=== PATIENT | female | born 1955 | race Caucasian/White ===

== ENCOUNTER → 2019-06-19 12:07 | Outpatient (CLI) | payer MEDICARE, OTHER, SELFPAY ==
--- NOTE | ~2019-06-19 | DEXA_ITS ---
Bone Density Report Name: Qi Otto Age: 63 Sex: Female Ethnicity: White Date of : 1955 Indication: postmenopausal; screening for osteoporosis; height loss; hysterectomy; Referring Provider: José Miguel, Curry Dudley Study: Bone densitometry was performed. Exam Date: June 19, 2019 Accession number: [id number] Bone Density: Region BMD T-score Z-score Classification AP Spine (L1-L4) 1.006 -0.4 1.4 Normal Femoral Neck (Left) 0.649 -1.8 -0.3 Osteopenia Total Hip (Left) 0.770 -1.4 -0.2 Osteopenia Femoral Neck (Right) 0.680 -1.5 0.0 Osteopenia Total Hip (Right) 0.746 -1.6 -0.4 Osteopenia Total Hip Mean 0.758 -1.5 -0.3 Osteopenia World Health Organization criteria for BMD impression classify patients as: Normal (T-score at or above -1.0), Osteopenia (T-score between -1.0 and -2.5), or Osteoporosis (T-score at or below -2.5). 10-year Fracture Risk: FRAX not reported because: Treated for osteoporosis Clinical Information Provided by Patient: Smokes Is being treated for osteoporosis Has used the following medications: HRT (i.e. estrogen/hormone therapy), Vitamin D, Calcium, TESTOSTERONE Has the following medical conditions: Hysterectomy Patient maximum height was 65 Menopause Age: 33 Drinks caffeinated beverages Onset of menses at age 9 Number of children 2 Impression: The patient has low bone mass, based on the Left Femoral Neck T-score. The patient has risk factors, including: smoking. Discussion: It is important to ask patients whether they are taking their medications and to encourage continued and appropriate compliance with their osteoporosis therapies to reduce fracture risk. It is also important to review their risk factors and encourage appropriate calcium and vitamin D intakes, exercise, fall prevention and other lifestyle measures. Follow-Up: Consider a repeat BMD and Vertebral Fracture Assessment (VFA) exam in 2 years or sooner if medically necessary, to reassess this patient's status. Reported by: [facility] on 06/19/2019 12:37:00 PM. Reviewed, dictated and finalized at location AGerber YATES
--- NOTE | ~2019-06-19 | MM_ITS ---
EXAMINATION: MM screening [facility] BI w ester HISTORY: Screening mammogram TECHNIQUE: Craniocaudal and mediolateral oblique 3-D tomosynthesis images were obtained and synthetic 2-D images were generated. CAD analysis was submitted and interpreted. COMPARISON: 08/22/2013, 07/05/2012, 06/02/2011 BREAST PARENCHYMAL COMPOSITION: There are scattered areas of fibroglandular density. FINDINGS: There is no evidence of suspicious mass, calcification, or architectural distortion to sugg est malignancy in either breast. There has been no suspicious interval change. IMPRESSION: 1. No mammographic evidence of malignancy. 2. Recommend routine screening mammography in one year. BI-RADS Category 1: Negative Reviewed, dictated and finalized at location A. RAL SUPPLY ASSISTANT
== END ==
PROVIDERS: PCP Chiropractor; Visit Provider Chiropractor
DX: M81.0 Age-related osteoporosis without current pathological fracture (principal); Z12.31 Encounter for screening mammogram for malignant neoplasm of breast
CPT/HCPCS: 77063; 77067; 77080

== ENCOUNTER → 2020-08-17 13:17 | Outpatient (CLI) | payer MEDICARE, SELFPAY ==
--- NOTE | ~2020-08-17 | MM_ITS ---
EXAMINATION: MM screening [facility] BI w ester HISTORY: Screening mammogram TECHNIQUE: Craniocaudal and mediolateral oblique 3-D tomosynthesis images were obtained and synthetic 2-D images were generated. CAD analysis was submitted and interpreted. COMPARISON: 06/19/2019, 08/22/2013, 07/05/2012 BREAST PARENCHYMAL COMPOSITION: There are scattered areas of fibroglandular density. FINDINGS: There is a 7 mm mass in the skin of the posterior third of the upper inner left breast, con sistent with a sebaceous cyst. There is no evidence of suspicious mass, calcification, or architectur al distortion to suggest malignancy in either breast. There has been no suspicious interval change. IMPRESSION: 1. No mammographic evidence of malignancy. 2. Recommend routine screening mammography in one year. BI-RADS Category 2: Benign finding(s). Reviewed, dictated and finalized at location A.
== END ==
PROVIDERS: PCP Chiropractor; Visit Provider Chiropractor
DX: Z12.31 Encounter for screening mammogram for malignant neoplasm of breast (principal)
CPT/HCPCS: 77063; 77067

== ENCOUNTER → 2022-02-23 13:15 | Outpatient (CLI) | payer MEDICARE, SELFPAY ==
--- NOTE | ~2022-02-23 | MM_ITS ---
EXAMINATION: MM screening [facility] BI w ester HISTORY: Screening mammogram TECHNIQUE: Craniocaudal and mediolateral oblique 3-D tomosynthesis images were obtained and synthetic 2-D images were generated. CAD analysis was submitted and interpreted. COMPARISON: 08/17/2020, 06/19/2019, 08/22/2013 BREAST PARENCHYMAL COMPOSITION: There are scattered areas of fibroglandular density. FINDINGS: No suspicious mass, calcification, or architectural distortion are identified in either oleksandr ast to suggest malignancy. There has been no suspicious interval change. IMPRESSION: 1. No mammographic evidence of malignancy. 2. Recommend routine screening mammography in one year. BI-RADS Category 1: Negative Reviewed, dictated and finalized at location A.
--- NOTE | ~2022-02-23 | DEXA_ITS ---
Bone Density Report Name: FRANCISCA MONTEJO Age: 66 Sex: Female Ethnicity: White Date of : 1955 Indication: osteopenia; monitoring treatment; height loss; hysterectomy; postmenopausal Referring Provider: BRIREGI Study: Bone densitometry was performed. Exam Date: February 23, 2022 Accession number: [id number] Bone Density: Region BMD T-score Z-score Classification AP Spine (L1-L4) 1.060 0.1 2.1 Normal Femoral Neck (Left) 0.656 -1.7 -0.1 Osteopenia Total Hip (Left) 0.777 -1.4 0.0 Osteopenia Femoral Neck (Right) 0.638 -1.9 -0.2 Osteopenia Total Hip (Right) 0.723 -1.8 -0.4 Osteopenia Total Hip Mean 0.750 -1.6 -0.2 Osteopenia World Health Organization criteria for BMD impression classify patients as: Normal (T-score at or above -1.0), Osteopenia (T-score between -1.0 and -2.5), or Osteoporosis (T-score at or below -2.5). 10-year Fracture Risk: FRAX not reported because: Treated for osteoporosis Previous Exams: Region Exam Age BMD T-score BMD Change BMD Change Date g/cm2 vs Baseline vs Previous AP Spine(L1-L4) 02/23/2022 66 1.060 0.1 0.054* 0.054* 06/19/2019 63 1.006 -0.4 Total Hip(Left) 02/23/2022 66 0.777 -1.4 0.007 0.007 06/19/2019 63 0.770 -1.4 Total Hip(Right) 02/23/2022 66 0.723 -1.8 -0.023 -0.023 06/19/2019 63 0.746 -1.6 *Denotes significance at 95% confidence level, LSC for AP Spine = 0.022 g/cm2, LSC for Total Hip = 0.027 g/cm2 Clinical Information Provided by Patient: Smokes Is being treated for osteoporosis Has used the following medications: HRT (i.e. estrogen/hormone therapy), Vitamin D, Calcium, TESTOSTERONE Has the following medical conditions: Hysterectomy Patient maximum height was 65.5 Menopause Age: 33 Does not regularly consume dairy products Drinks caffeinated beverages Onset of menses at age 9 Number of children 2 Impression: The patient has low bone mass, based on the Right Femoral Neck T-score. The patient has risk factors, including: smoking. No significant bone loss was observed. Discussion: PATIENT UNDER TREATMENT WITH NO SIGNIFICANT BMD LOSS SINCE LAST EXAM. In an untreated patient, BMD typically declines with age. A lack of decline or gain is usually a sign that treatment is efficacious and fracture risk is reduced. It is important to ask patients whether they are taking their medications and to encourage continued and appropriate co
== END ==
PROVIDERS: PCP Nurse Practitioner Family; Visit Provider Nurse Practitioner Family
DX: Z12.31 Encounter for screening mammogram for malignant neoplasm of breast (principal); E55.9 Vitamin D deficiency, unspecified; Z78.0 Asymptomatic menopausal state; M85.852 Other specified disorders of bone density and structure, left thigh; M85.851 Other specified disorders of bone density and structure, right thigh
CPT/HCPCS: 77063; 77067; 77080

== ENCOUNTER 2024-04-03 13:05 | Outpatient (CLI) | payer MEDICARE, SELFPAY ==
--- NOTE | ~2024-04-03 | MM_ITS ---
EXAMINATION: MM screening [facility] BI w ester HISTORY: Screening TECHNIQUE: Craniocaudal and mediolateral oblique 3-D tomosynthesis images were obtained and synthetic 2-D images were generated. CAD analysis was submitted and interpreted. COMPARISON: Comparison to multiple prior studies sequentially, with oldest reviewed study dated 08/17. BREAST PARENCHYMAL COMPOSITION: Not dense: There are scattered areas of fibroglandular density. FINDINGS: There is no evidence of suspicious mass, calcification, or architectural distortion to sugg est malignancy in either breast. There has been no suspicious interval change. IMPRESSION: 1. No mammographic evidence of malignancy. 2. Recommend routine screening mammography in one year. BI-RADS Category 1: Negative Reviewed, dictated and finalized at location B. TING ENGINE OPERATOR
== END 2024-04-03 13:06 | disposition home or self-care (01) ==
LOC: MICIMG 13:06
PROVIDERS: PCP Nurse Practitioner Family; Visit Provider Nurse Practitioner Family
DX: Z12.31 Encounter for screening mammogram for malignant neoplasm of breast (principal)
CPT/HCPCS: 77063; 77067

== ENCOUNTER 2024-06-03 12:45 | Outpatient (CLI) | payer MEDICARE, SELFPAY ==
--- NOTE | ~2024-06-03 | DEXA_ITS ---
Bone Density Report Name: FRANCISCA MONTEJO Age: 68 Sex: Female Ethnicity: White Date of : 1955 Indication: postmenopausal; screening for osteoporosis; height loss; history of glucocorticoids; hysterectomy; Referring Provider: BRI, REGI Study: Bone densitometry was performed. Exam Date: June 03, 2024 Accession number: [id number] Bone Density: Region BMD T-score Z-score Classification AP Spine(L1-L4) 1.047 0.0 2.1 Normal Femoral Neck (Left) 0.660 -1.7 0.1 Osteopenia Total Hip (Left) 0.775 -1.4 0.1 Osteopenia Femoral Neck (Right) 0.637 -1.9 -0.1 Osteopenia Total Hip (Right) 0.731 -1.7 -0.2 Osteopenia Total Hip Mean 0.753 -1.6 -0.1 Osteopenia World Health Organization criteria for BMD impression classify patients as: Normal (T-score at or above -1.0), Osteopenia (T-score between -1.0 and -2.5), or Osteoporosis (T-score at or below -2.5). 10-year Fracture Risk(1): Major Osteoporotic Fracture 17% Hip Fracture 3.3% Reported Risk Factors: [place] (), Neck BMD=0.637, BMI=30.3, glucocorticoids (1) FRAX(R) Version 3.08. Fracture probability calculated for an untreated patient. Fracture probability may be lower if the patient has received treatment. Clinical Information Provided by Patient: Has taken Glucocorticoids Has used the following medications: Boniva (i.e. ibandronate), Fosamax (i.e. alendronate), Vitamin D, Calcium Has the following medical conditions: Hysterectomy Patient maximum height was 65 Menopause Age: 41 Drinks caffeinated beverages Onset of menses at age 9 Number of children 2 Impression: The patient has low bone mass, based on the Right Femoral Neck T-score. The patient has an estimated ten-year risk of hip fracture of 3.3% and an estimated ten-year risk of major fracture of 17%, based on the WHO FRAX algorithm. The patient has risk factors, including: history of glucocorticoid therapy. Discussion: BONE DENSITY IS LOW AT ONE OR MORE SKELETAL SITES. THE PATIENT'S BMD AND CLINICAL RISK FACTORS CONTRIBUTE TO THIS PATIENT'S INCREASED RISK OF FRACTURE. This patient's lowest T-score is low at one or more skeletal sites. It meets the World Health Organization's (WHO) criteria for ?low bone mass? (T-score between -1.0 and -2.5). The patient's 10-year risk of hip fracture as calculated by FRAX exceeds the threshold where pharmacological therapy is recommended by the National Osteoporosis Foundation (NOF). However, all treatment decisions require clinical judgment and consideration of individual patient factors, including patient preferences, comorbidities, previous drug use, risk factors not captured in the FRAX model (e.g., frailty, falls, vitamin D deficiency, increased bone turnover, interval significant decline in bone density) and possible under or overestimation of fracture risk by FRAX. The patient should follow a healthful lifestyle (good nutrition with adequate calcium and vitamin D, and appropriate weight-bearing exercise). Follow-Up: Consider a repeat BMD and Vertebral Fracture Assessment (VFA) exam in 2 years or sooner if medically necessary, to reassess this patient's status. Reported by: CLINT on 06/03/2024 1:18:00 PM. Reviewed, dictated and finalized at location Mary YATES
--- OUTSIDE RECORDS SUMMARY | 2024-06-03 13:35 | XMS_ITS | Clinical Summary ---
Author Organization [facility] Address [address] [place] [address] Phone Care Team Providers Care City Bus Driver Name Role Phone Curry Valdez MD Primary Care Provider Allergies Active Allergy Reactions Criticality Noted Date Comments Ketorolac Tromethamine Nausea,Vomiting Medium 12/14/19 19 Medications losartan potassium-hydr ochlorothiazid e (HYZAAR) 100-25 MG Tablet Take 1 Tab by mouth every morning. Active TESTOSTERONE TD by Intramuscular route every 14 days. Active Multiple Vitamins-[place] als (HAIR SKIN NAILS PO) Take 1 Tab by mouth every morning. Active Calcium Carb-Cholecalc iferol (CALCIUM + D3 PO) Take 1 Tab by mouth every morning. Active Probiotic Product (PRO-BIOTIC BLEND PO) Take 1 Tab by mouth every morning. Active otherIndicatio ns:Cruciferous veg extract 1 Tab by Other route daily. Indications: Cruciferous veg extract Active FIBER PO Take by mouth every morning. Active Family History Medical History Relation Name Comments Cancer Father prostate cancer Heart Disease Father Heart Surgery Father Cancer Maternal Aunt breast Cancer Maternal Great-Grandmother b reast Seizures Mother Cancer Paternal Aunt uterine Relation Name Status Comments Father Maternal Aunt Maternal Great-Grandmother Mother Alive Paternal Aunt Social History Tobacco Use Types Packs/Day Years Used Date Smoking Tobacco: Some Days Cigarettes 0.5 40 Smokeless Tobacco: Never Tobacco Cessation:Ready to Q uit: Yes Alcohol Use Standard Drinks/Week Comments Yes 4 (1 standard drink = 0.6 oz pur e alcohol) Comments Unknown Sex and Gender Information Value Date Recorded Sex Assigned at Not on file Legal Sex Female 11:17 PM CDT Gender Identity Not on file Sexual Orientation Not on file Last Filed Vital Signs Vital Sign Reading Time Taken Comments Blood Pressure 100/69 01/29/2020 10:45 AM CDT Pulse 74 01/29/2020 10:45 AM CDT Temperature 36.1 ??C (97 ??F) 01/29/2020 10:45 AM CDT Respiratory Rate 18 01/29/2020 10:45 AM CDT Oxygen Saturation 99% 01/29/2020 10:45 AM CDT Inhaled Oxygen Concentration - - Weight 75.3 kg (166 lb) 01/03/2020 1:00 PM CDT Height 162.6 cm (5' 4 ) 01/03/2020 1:00 PM CDT Body Mass Index 28.49 01/03/2020 1:00 PM CDT Plan of Treatment Health Maintenance Due Date Last Done Comments DEXA Bone Density 1955 Hepatitis C Virus (HCV) Screening 1955 TdaP Immunization 1955 Cologuard 2004 Immunochemical Fecal Occult Blood 2004 Mammogram 2004 Pneumococcal Immunization (50+ years) (1 of 1 - PCV) 2004 Zoster Immunization (1 of 2) 2004 Colonoscopy 01/28/2023 01/29/2020, 01/18/2019 Colorectal Cancer Screening 01/28/2023 Influenza Immunization (#1) 2023 10/0 11/2018, 02/06/2018, 01/30/2017, Additional history exists SARS-COV-2 Immunization ( - season) 2023 07/03/2020 Respiratory Syncytial Virus (RSV) Immunization (Adult) (1 - 1-dose 75+ series) 2029 Colonoscopy High Risk 01/28/2030 01/29/2020, 019 Hepatitis B Immunization Aged Out No longer eligible based on patient's age to complete this topic Meningococcal Immunization (ACWY) Aged Out No longer eligible based on patient's age to complete this topic Rotavirus Immunization Aged Out No lo nger eligible based on patient's age to complete this topic Insurance [employer] [facility] OA MEDICARE Care Teams City Bus Driver Relationship Specialty Start Date End Date Curry Valdez MD [address] [facility] [place] [address] PCP - General Internal Medicine 01/17/19
--- OUTSIDE RECORDS SUMMARY | 2024-06-03 13:35 | XMS_ITS | Clinical Summary ---
Author Organization [facility] Address [facility] [place] [place], [place] [id number] [place] [id number] Care Team Providers Care Noc Technician Name Role Phone Eva Holloway CARMEN Primary Care Provider [phone] Allergies Active Allergy Reactions Criticality Noted Date Comments Egg-Derived Products Nausea Only,GI Upset 09/19 Severe stomach pains Alendronate GI Upset High 04/10/2023 Ketorolac Tromethamine Nausea and Vomiting Medium 11/29 Medications testosterone cypionate 200 MG/ML injection Active calcium carb-cholecalcifero l 600-400 MG-UNIT Tab tablet Take 1 tablet by mouth. Active Probiotic Product (PROBIOTIC-10 ULTIMATE) Cap Take 1 tablet by mouth. Active Multiple Vitamins-Minerals (HAIR SKIN & NAILS ADVANCED OR) Take 1 tablet by mouth. Active Calcium Polycarbophil (FIBER-CAPS OR) Acti ve ibuprofen 800 MG tablet Take 1 tablet (800 mg total) by mouth every 6 (six) hours as needed. 1 Active progesterone (PROMETRIUM) 100 MG capsule Take 1 capsule (100 mg total) by mouth nightly. 4 Active vitamin D3 (CHOLECALCIFEROL) 25 mcg tablet Take 1 tablet (25 mcg total) by mouth daily. Active amLODIPine (NORVASC) 5 MG tabletIndications:E ssential hypertension Take 1 tablet (5 mg total) by mouth daily. 90 tablet 3 4 Active hydroCHLOROthiazide (HYDRODIURIL) 25 MG tabletIndications:E ssential hypertension Take 1 tablet (25 mg total) by mouth daily. 90 tablet 3 4 Active Krill Oil 500 MG Cap Active ondansetron (ZOFRAN-ODT) 4 MG disintegrating tabletIndications:N ausea Take 1 tablet (4 mg total) by mouth every 8 (eight) hours as needed for Nausea. 30 tablet 4 Active fluticasone propionate (FLONASE) 50 MCG/ACT nasal sprayIndications:Re current sinusitis 2 sprays by Each Nostril route daily. 18.2 mL 2 4 Active Active Problems Problem Noted Date Diagnosed Date Muscle spasms of neck 04/18/2024 Post-menopausal 10/06/2023 Mixed dyslipidemia 04/10/2023 Osteopenia, unspecified location 11/09/2020 History of colonic polyps 11/09/2020 Essential hypertension 11/09/2020 Hx of adenomatous polyp of colon 11/09/2020 Vitamin D deficiency 11/09/2020 Current every day smoker 11/09/2020 History of colon resection 11/09/2020 Low testosterone level in female 11/09/2020 Resolved Problems Problem Noted Date Diagnosed Date Resolved Date Encounter for colonoscopy du e to history of adenomatous colonic polyps 03/20/2023 03/27/2023 Encounters Date Type Department Care Team Description 04/18/2024 2:20 PM BLUEPRINT PROCESSOR Office Visit [facility] Family & Internal Medicine [address] [phone] Eva Holloway FNP Follow Up; Hypertension 04/18/2024 Travel 04/11/2024 Telephone [facility] Family & Internal Medicine [address] [phone] Eva Holloway FNP Radiology Results 04/03/2024 Scan [facility] SRVCS Scanned, [facility] Mammogram (SCAN) from Last 3 Months Immunizations Name Administration Dates Next Due Arexvy Respiratory Syncytial Virus (RSV, adjuvanted) 0.5 mL, PF 02/10/2023 Flublok (Quadrivalent) 02/05/2019 Fluzone High Dose - >Age 65 (Prefilled Syringe) 02/05/2021,01/01/2020 Influenza (Generic) 02/10/2023,,02/05/2019,2015 Influenza Adult (Generic) 02/06/2018,01/30/2017, 12/24/2015 Pneumococcal (Prevnar 13) 02/05/2021 Pneumococcal (Prevnar 20) 04/10/2023 Tdap (Adacel) 04/10/2023 Family History Medical History Relation Comments Hypertension Brother Cancer Father Prostate Heart Disease Father Quadruple bypass Hypertension Father Cancer Maternal Aunt breast Arthritis Mother Cancer Mother Hypertension Mother Seizures Mother Stroke Mother Cancer Paternal Aunt Hypertension Sister Relation Status Comments Brother Father (Age 74) Maternal Aunt Alive Mother Alive Paternal Aunt Sister Social History Tobacco Use Types Packs/Day Years Used Date Smoking Tobacco: Every Day Cigarettes 0.3 46 Smokeless Tobacco: Never Tobacco Cessation:Ready to Q uit: No; Counseling Given: Yes Comments:She smokes 3 to 4 a day and when she has quit in the past she gains 30 lbs/ Not interested in quitting Alcohol Use Standard Drinks/Week Comments Yes 0 (1 standard drink = 0.6 oz pur e alcohol) social PHQ-2 Answer Date Recorded Patient Health Questionnaire-2 Score 0 10/30/2023 Comments No Sex and Gender Information Value Date Recorded Sex Assigned at Not on file Legal Sex Female 7:07 PM CDT Gender Identity Female 06/14/2021 1:45 PM BLUEPRINT PROCESSOR Sexual Orientation Straight 06/14/2021 1: 45 PM BLUEPRINT PROCESSOR Last Filed Vital Signs Vital Sign Reading Time Taken Comments Blood Pressure 162/80 04/18/2024 2:25 PM BLUEPRINT PROCESSOR Pulse 80 04/18/2024 2:25 PM BLUEPRINT PROCESSOR Temperature 36.1 ??C (97 ??F) 04/18/2024 2:25 PM BLUEPRINT PROCESSOR Respiratory Rate 14 04/18/2024 2:25 PM BLUEPRINT PROCESSOR Oxygen Saturation 98% 04/18/2024 2:25 PM BLUEPRINT PROCESSOR Inhaled Oxygen Concentration - - Weight 74.3 kg (163 lb 12.8 oz) 04/18/2024 2:25 PM BLUEPRINT PROCESSOR Height 162.6 cm (5' 4 ) 04/18/2024 2:25 PM BLUEPRINT PROCESSOR Body Mass Index 28.12 04/18/2024 2:25 PM BLUEPRINT PROCESSOR Plan of Treatment Upcoming Encounters Date Type Department Care Team (Late st Contact Info) Description 10/17/2024 10:40 AM CDT Office Visit [facility] Family & Internal Medicine - [address] [phone] Eva Holloway, CLINICAL ESTHETICIAN [address] [place] [id number] Health Maintenance Due Date Last Done Comments Annual Medicare Wellness Visit 2019 PHQ-2 (Physician Samish) 05/01/2024 10/30/2023 PHQ-2 (Physician Samish) 10/29/2024 10/30/2023 Zoster Vaccines (1 of 2) 04/18/2025 Pos tponed from 2004 (Patient Refused) Mammogram Screening 04/03/2026 04/03/2024, 02/23/2022, 02/23/2022 DTaP, Tdap and Td Vaccines (2 - Td or Tdap) 04/10/2033 04/10/2023 Colorectal Cancer Screening Colonoscopy (10 Years) 05/04/2033 05/04/2023, 01/29/2020, 01/18/2019 COVID-19 Vaccine ( season) 2112 07/03/2020 Postponed from 12/31/2023 (Going to Outside Clinic) Dexa Scan (General) Completed 02/23/2022, Hepatitis C Completed 09/30/2022 RSV Immunization or 60+ Years Completed 02/10/2023 Pneumococcal Vaccine: 65+ Years Completed 04/10/2023, 02/05/2021 Influenza Adult Completed 01/13/2024, 01/29, 01/31/2022, Additional history exists Meningococcal B Vaccine Aged Out No l onger eligible based on patient's age to complete this topic Meningococcal Vaccine Aged Out No param polo eligible based on patient's age to complete this topic RSV Immunizations Under 20 Months Aged Out No longer eligible based on patient's age to complete this topic Procedures Procedure Name Priority Date/Time Associated Diagnosis Comments MAMMOGRAM GENERIC (SCAN ORDER) 04/03/2024 HEPATITIS C ANTIBODY Routine 09/30/2022 8:39 AM CDT Encounter for hepatitis C screening test for low risk patient BONE DENSITY GENERIC (SCAN ORDER) 02/23/2022 COLONOSCOPY GENERIC (SCAN ORDER) 01/29/2020 from Last 3 Months or Most Recently Relevant to Health Maintenance Results * MAMMOGRAM GENERIC (SCAN ORDER) (04/03/2024) Anatomical Region Laterality Modality Other 04/03/2024 [facility] Scanned SCANNING Final Resu lt * HEPATITIS C ANTIBODY ([facility] ONLY) (09/30/2022 8:39 AM CDT) HEPATITIS C AB NON-REACTI VE NON-REACT ALAN 09/30/2022 6:22 PM CDT [facility] Comment: ANTIBODIES TO HCV NOT DETECTED. DOES NOT EXCLUDE THE POSSIBILITY OF EXPOSURE TO HCV. 09/30/2022 8:39 AM CDT us Eva Holloway CLINICAL ESTHETICIAN LABORATORY Final Result [facility] [address] [place] [address], [id number] * BONE DENSITY GENERIC (02/23/2022) Anatomical Region Laterality Modality Other 02/23/2022 [facility] Scanned SCANNING Final Resu lt * COLONOSCOPY GENERIC (01/29/2020) 01/29/2020 Narrative 01/29/2020 Ordered by an unspecified provider. us Documents Scanned SCANNING Final Result from Last 3 Months or Most Recently Relevant to Health Maintenance Insurance [employer] Care Teams Noc Technician Relationship Specialty Start Date End Date Eva Hollwoay FNP [address] [place] [id number] PCP - General Nurse Practitioner Family 11/09/20
== END 2024-06-03 12:46 | disposition home or self-care (01) ==
LOC: ANHIMG 12:48
PROVIDERS: PCP Nurse Practitioner Family; Visit Provider Nurse Practitioner Family
DX: M85.89 Other specified disorders of bone density and structure, multiple sites (principal); Z78.0 Asymptomatic menopausal state
CPT/HCPCS: 77080